=== PATIENT | male | born 1995 | race Caucasian/White ===

== ENCOUNTER 2020-04-10 22:52 | Emergency (ER) | payer SELFPAY ==
[~2020-04-10] VITALS: Ht 177.8 cm; Wt 75.0 kg
[2020-04-11 03:12] VITALS: BP 127/76
== END 2020-04-11 03:51 | disposition home or self-care (01) ==
LOC: EMS 22:55
DX: S01.01XA Laceration without foreign body of scalp, initial encounter (principal); F10.129 Alcohol abuse with intoxication, unspecified; F60.9 Personality disorder, unspecified; Y90.9 Presence of alcohol in blood, level not specified; W19.XXXA Unspecified fall, initial encounter; Z91.81 History of falling; Y93.89 Activity, other specified; Y92.89 Other specified places as the place of occurrence of the external cause; Y99.8 Other external cause status
CPT/HCPCS: 99283; Z7502